=== PATIENT | male | born 1945 | race Caucasian/White ===

== ENCOUNTER 2017-04-07 10:19 | Outpatient (CLI) | payer MEDICARE, OTHER ==
[2013-10-09 09:16] VITALS: BP 117/69
[2017-04-07 11:18] LABS: eGFR (African) > 60; eGFR (Non-African) 58
== END 2017-04-07 10:20 ==
LOC: LAB 10:19
PROVIDERS: ATTEND Family Medicine
DX: E11.69 Type 2 diabetes mellitus with other specified complication (principal); I25.10 Atherosclerotic heart disease of native coronary artery without angina pectoris; N40.0 Benign prostatic hyperplasia without lower urinary tract symptoms
CPT/HCPCS: 36415; 80053; 80061; 82043; 83036; 84153

== ENCOUNTER 2018-04-28 09:12 | Outpatient (CLI) | payer OTHER ==
[2013-10-09 09:16] VITALS: BP 117/69
[2018-04-28 10:07] LABS: eGFR (Non-African) > 60
== END 2018-04-28 09:14 ==
LOC: LAB 09:12
PROVIDERS: ATTEND Family Medicine
DX: E11.9 Type 2 diabetes mellitus without complications (principal)
CPT/HCPCS: 36415; 80053; 80061; 82043; 83036